=== PATIENT | female | born 1975 | race Caucasian/White ===

== ENCOUNTER 2016-11-01 20:04 | Emergency (ER) | payer OTHER ==
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
[2016-11-02] MEDS ORDERED: NAPROXEN 250 MG TABLET PO ONE (01:54)
[2016-11-02 03:38] VITALS: BP 131/87
== END 2016-11-02 02:20 | disposition home or self-care (01) ==
LOC: ER 20:04
DX: S40.011A Contusion of right shoulder, initial encounter (principal); M25.511 Pain in right shoulder; V89.2XXA Person injured in unspecified motor-vehicle accident, traffic, initial encounter; Z90.49 Acquired absence of other specified parts of digestive tract; Z90.710 Acquired absence of both cervix and uterus
CPT/HCPCS: 99283

== ENCOUNTER 2017-06-22 11:15 | Emergency (ER) | payer OTHER ==
--- NOTE | 2017-06-22 11:51 | ER Document Report ---
ED Flu Like - General Chief Complaint: Flu Symptoms Stated Complaint: BODYACHES Time Seen by Provider: 06/22/17 11:51 Mode of Arrival: Ambulatory Information source: Patient Notes: 42-year-old female presents to ED [facility] of cough congestion and body aches since . She states she had a fever 2 days ago but no fever today. She states she has taken [id number] cough and cold medication with no relief. TRAVEL OUTSIDE OF THE [place] IN LAST 30 DAYS: No - HPI Onset: Other - 2 weeks Timing/Duration: Intermittent Quality of pain: Achy Severity: Moderate Pain Level: 3 CO exposure: No Associated symptoms: Body/muscle aches, Nonproductive cough, Fever, Rhinnorhea, Sinus pain/drainage, Sore throat Similar symptoms previously: Yes Recently seen / treated by doctor: No - Related Data Allergies/Adverse Reactions: No Known Allergies Allergy (Verified 06/22/17 11:16) Past Medical History - General Information source: Patient - Social History Smoking Status: Never Smoker Cigarette use (# per day): No Chew tobacco use (# tins/day): No Smoking Education Provided: No Frequency of alcohol use: Occasional Drug Abuse: None Occupation: [employer] Lives with: Alone - With children Family History: DM. denies: Arthritis, CAD, COPD, CVA, Hyperlipidemia, Hypertension, Malignancy, Thyroid Disfunction Patient has suicidal ideation: No Patient has homicidal ideation: No - Past Medical History Cardiac Medical History: Reports: None Pulmonary Medical History: Reports: Hx Bronchitis, Hx Pneumonia - yrs ago EENT Medical History: Reports: None Neurological Medical History: Reports: None Endocrine Medical History: Reports: None Renal/ Medical History: Reports: None Malignancy Medical History: Reports: None GI Medical History: Reports: None Musculoskeltal Medical History: Reports None Skin Medical History: Reports None Psychiatric Medical History: Reports: None Traumatic Medical History: Reports: None Infectious Medical History: Reports: None Past Surgical History: Reports: Hx Appendectomy, Hx Cholecystectomy, Hx Hysterectomy, Hx Tubal Ligation - Immunizations Immunizations up to date: Yes Hx Diphtheria, Pertussis, Tetanus Vaccination: Yes Review of Systems - Review of Systems Constitutional: Chills, Fever, Recent illness EENT: Nose discharge, Sinus pressure, Sinus discharge Cardiovascular: No symptoms reported Respiratory: Cough Gastrointestinal: No symptoms reported Genitourinary: No symptoms reported Female Genitourinary: No symptoms reported Musculoskeletal: No symptoms reported Skin: No symptoms reported Hematologic/Lymphatic: No symptoms reported Neurological/Psychological: No symptoms reported Physical Exam - Vital signs Vitals: Temp Pulse BP Pulse Ox 98.3 F 80 134/83 H 97 06/22/17 11:19 06/22/17 11:19 06/22/17 11:19 06/22/17 11:19 Interpretation: Normal - General General appearance: Appears well, Alert - HEENT Head: Normocephalic, Atraumatic Eyes: Normal Pupils: PERRL Ears: Normal External canal: Normal Tympanic membrane: Normal Sinus: Frontal, Mastoid, Tenderness Nasal: Swelling, Clear rhinorrhea Mouth/Lips: Normal Pharynx: Post nasal drainage Neck: Normal - Respiratory Respiratory status: No respiratory distress Chest status: Nontender Breath sounds: Nonproductive cough Chest palpation: Normal - Cardiovascular Rhythm: Regular Heart sounds: Normal auscultation Murmur: No - Abdominal Inspection: Normal Distension: No distension Bowel sounds: Normal Tenderness: Nontender Organomegaly: No organomegaly - Back Back: Normal, Nontender - Extremities General upper extremity: Normal inspection, Nontender, Normal color, Normal ROM , Normal temperature General lower extremity: Normal inspection, Nontender, Normal color, Normal ROM , Normal temperature, Normal weight bearing. No: Shimon's sign - Neurological Neuro grossly intact: Yes Cognition: Normal Orientation: AAOx4 Bow Coma Scale Eye Opening: Spontaneous Bow Coma Scale Verbal: Oriented Clarice Coma Scale Motor: Obeys Commands Bow Coma Scale Total: 15 Speech: Normal Motor strength normal: LUE, RUE, LLE, RLE Sensory: Normal - Psychological Associated symptoms: Normal affect, Normal mood - Skin Skin Temperature: Warm Skin Moisture: Dry Skin Color: Normal Course - Vital Signs Vital signs: Temp Pulse Resp BP Pulse Ox 98.0 F 64 16 122/80 98 06/22/17 13:37 06/22/17 13:37 06/22/17 13:37 06/22/17 13:37 06/22/17 13:37 - Diagnostic Test Radiology reviewed: Image reviewed, Reports reviewed Discharge - Discharge Clinical Impression: URI (upper respiratory infection) Qualifiers: URI type: unspecified URI Qualified Code(s): J06.9 - Acute upper respiratory infection, unspecified Condition: Stable Disposition: HOME, SELF-CARE Instructions: Use of Kimy-Blu-Xksvfcz Ibuprofen ([facility]) Additional Instructions: UPPER RESPIRATORY ILLNESS: You have a viral infection of the respiratory passages -- a "cold." This common infection causes nasal congestion, drainage, and often sore throat and cough. It is highly contagious. The disease usually lasts about 10 to 14 days. There is no "cure" for the viral infection -- it must run its course. If there is a complication, such as bacterial infection in the nose, sinuses, middle ear, or bronchial tubes, antibiotics may be required. The antibiotics won't affect the virus. Drink plenty of fluids. A humidifier may help. An expectorant medication or decongestant may make you more comfortable. Use acetaminophen or ibuprofen for fever or aches. See the doctor if fever persists over two days, if there is any significant worsening of your symptoms, or if you simply fail to improve as expected. DECONGESTANT MEDICATION: A decongestant medicine has been suggested. Often this medicine is combined in the same tablet with an antihistamine or expectorant. This type of medicine is helpful in treating a bad cold or sinus condition, as well as in treatment of the nasal congestion of hay fever. It is not of much benefit for lung infections. Decongestant medicines are related to stimulants. They can cause an increase in blood pressure and heart rate. Persons with heart disease and high blood pressure should not take decongestants without discussing this with the physician. If you develop palpitations, chest pain, headache, or tremors, stop the medicine and consult your physician. COUGH-SUPPRESSANT & EXPECTORANT MEDICATION: You are to use a cough medication as needed for relief of symptoms. This medicine is a combination of an expectorant (to make the mucous thinner and more easily "coughed up") and a cough suppressant (to reduce the frequency of coughing). The cough-suppressant medicine is related to narcotics. You may experience mild nausea and sleepiness. Some patients who are very sensitive to narcotics may have stomach pain from this medicine. Taking the medicine with food reduces these side effects. Do not drive or work with machinery until you know how this medicine affects you. The expectorant should have no side effects. Iodine-containing expectorants (such as organidin) should not be taken by persons with active thyroid disease unless approved by your doctor. Call the doctor if you develop shortness of breath, hives, rash, itching, lightheadedness, or severe nausea and vomiting. Try Flonase, Claritin, Sudafed, Mucinex, and ibuprofen. When you get the combination medications most times there is not enough of each medicine over-the -counter individual medications often if more effective. Salt and soda solution 1 quart of water 1 tablespoon of salt 1 teaspoon of baking soda Mixed 3 ingredients together and boil for 1 minute Placed in a covered quart jar Use 1/2 ounce of cold solution to gargle 3 times a day USE OF ACETAMINOPHEN (Tylenol): Acetaminophen may be taken for pain relief or fever control. It's much safer than aspirin, offering a wider range of "safe" dosages. It is safe during . Some brand names are Tylenol, Panadol, Datril, Anacin 3, Tempra, and Liquiprin. Acetaminophen can be repeated every four hours. The following are maximum recommended dosages: >89 pounds or adults 650 mg to 900 mg Acetaminophen can be repeated every four hours. Maximum dose not to exceed 4000 mg a day. FOLLOW-UP CARE: If you have been referred to a physician for follow-up care, call the physician s office for an appointment as you were instructed or within the next two days. If you experience worsening or a significant change in your symptoms, notify the physician immediately or return to the Emergency Department at any time for re-evaluation. Forms: Elevated Blood Pressure, Return to Work Referrals: KETURAH HERNANDEZ MD [Primary Care Provider] - Follow up as needed
--- NOTE | 2017-06-22 12:40 | RADIOLOGY REPORT (SQ) ---
EXAM DESCRIPTION: CHEST PA/LAT COMPLETED DATE/TIME: 06/22/2017 12:32 pm REASON FOR STUDY: cough congestion COMPARISON: 05/31/2015 EXAM PARAMETERS: NUMBER OF VIEWS: two views TECHNIQUE: Digital Frontal and Lateral radiographic views of the chest acquired. RADIATION DOSE: NA LIMITATIONS: none FINDINGS: LUNGS AND PLEURA: No opacities, masses or pneumothorax. No pleural effusion. MEDIASTINUM AND HILAR STRUCTURES: No masses or contour abnormalities. HEART AND VASCULAR STRUCTURES: Heart normal size. No evidence for failure. BONES: No acute findings. HARDWARE: None in the chest. OTHER: No other significant finding. IMPRESSION: NO SIGNIFICANT RADIOGRAPHIC FINDING IN THE CHEST. TECHNICAL DOCUMENTATION: JOB ID: [id number] [employer]- All Rights Reserved
[2017-06-22 13:41] VITALS: BP 122/80
== END 2017-06-22 13:38 | disposition home or self-care (01) ==
LOC: ER 11:15
DX: J06.9 Acute upper respiratory infection, unspecified (principal); M79.1 Myalgia; R05 Cough; R09.81 Nasal congestion; R50.9 Fever, unspecified
CPT/HCPCS: 71020; 99283

== ENCOUNTER 2019-07-19 07:27 | Emergency (ER) | payer BC, OTHER ==
[2019-07-19] MEDS ORDERED: DEXAMETHASONE 4 MG TABLET PO ONE (07:49)
[2019-07-19] MEDS ORDERED: FAMOTIDINE 20 MG TABLET PO ONE (07:49)
[2019-07-19] MEDS ORDERED: DIPHENHYDRAMINE HCL 50 MG CAPSULE PO ONE (07:49)
--- NOTE | 2019-07-19 07:53 | ER Document Report ---
ED General - General Chief Complaint: Allergic Reaction Stated Complaint: BEE STING/POSSIBLE ALLERGIC REACTION Primary Care Provider: KETURAH HERNANDEZ MD [Primary Care Provider] - Follow up as needed Notes: Patient presents with "feeling out of sorts" with some mild skin itching after being stung by a bee in the endoscopy suite at [facility]. She denies throat tightness but has a scratchy throat for about a week in the setting of a URI. She has no vomiting diarrhea. 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 TRAVEL OUTSIDE OF THE [place] IN LAST 30 DAYS: No - Related Data Allergies/Adverse Reactions: bee sting Allergy (Uncoded 07/19/19 07:52) Past Medical History - Social History Smoking Status: Unknown if Ever Smoked Family History: DM. denies: Arthritis, CAD, COPD, CVA, Hyperlipidemia, Hypertension, Malignancy, Thyroid Disfunction Patient has suicidal ideation: No Patient has homicidal ideation: No - Past Medical History Cardiac Medical History: Denies: Hx Coronary Artery Disease, Hx Heart Attack, Hx Hypertension Pulmonary Medical History: Reports: Hx Bronchitis, Hx Pneumonia - yrs ago Denies: Hx Asthma, Hx COPD Neurological Medical History: Denies: Hx Cerebrovascular Accident, Hx Seizures Renal/ Medical History: Denies: Hx Peritoneal Dialysis Musculoskeletal Medical History: Denies Hx Arthritis Past Surgical History: Reports: Hx Appendectomy, Hx Cholecystectomy, Hx Hysterectomy, Hx Tubal Ligation - Immunizations Immunizations up to date: Yes Hx Diphtheria, Pertussis, Tetanus Vaccination: Yes Review of Systems - Review of Systems Notes: REVIEW OF SYSTEMS GEN: Denies fever, chills, weight loss ENT: Denies sore throat, nasal discharge, ear pain EYES: Denies blurry vision, eye pain, discharge CV: Denies chest pain, palpitations, edema RESP: Denies cough, shortness of breath, wheezing GI: Denies abdominal pain, nausea, vomiting, diarrhea MSK: Denies joint pain/swelling, edema, SKIN: Itching, bee sting to the left fourth webspace on the hand LYMPH: Denies swollen glands/lymph nodes NEURO: Denies headache, focal weakness or numbness, dizziness PSYCH: Denies depression, suicidal or homicidal ideation PHYSICAL EXAMINATION General: No acute distress, well-nourished Head: Atraumatic, normocephalic ENT: Mouth normal, oropharynx moist, no exudates or tonsillar enlargement Eyes: Conjunctiva normal, pupils equal, lids normal Neck: No JVD, supple, no guarding CVS: Normal rate, regular rhythm, no murmurs Resp: No resp distress, equal and normal breath sounds bilaterally GI: Nondistended, soft, no tenderness to palpation, no rebound or guarding Ext: No deformities, no edema, normal range of motion in upper and lower ext Back: No CVA or midline TTP Skin: Single pruritic papule left dorsal webspace upper hand without surrounding redness Lymphatic: No lymphadeopathy noted Neuro: Awake, alert. Face symmetric. GCS 15. Physical Exam - Vital signs Vitals: Temp Pulse Resp BP Pulse Ox 98.0 F 85 18 135/85 H 90 L 07/19/19 07:35 07/19/19 07:35 07/19/19 07:35 07/19/19 07:35 07/19/19 07:35 Course - Re-evaluation Re-evalutation: 07/19/19 07:52 Mild allergic reaction to bee sting in a patient with a remote history of anaphylaxis. No clinical signs of anaphylaxis here. Will treat with oral meds, Pepcid Benadryl and Decadron and reassess. 07/19/19 12:38 Patient does not develop any further allergic symptoms and actually improved in the ED. Stable for discharge. Self tapering Decadron given and will do antihistamines at home. I have discussed with the patient there likely diagnosis, aftercare plan, follow-up plans and my usual and customary return precautions. They verbalized understanding of this. - Vital Signs Vital signs: Temp Pulse Resp BP Pulse Ox 97.6 F 72 16 136/95 H 97 07/19/19 09:04 07/19/19 09:04 07/19/19 09:04 07/19/19 09:04 07/19/19 09:04 Discharge - Discharge Clinical Impression: Bee sting allergy Condition: Good Disposition: HOME, SELF-CARE Instructions: Acute Allergic Reaction ([facility]) Additional Instructions: The steroid medicine you got in the ER last to 3 days in a single dose. Please take Benadryl every 6 hours, 2 tablets or 50 mg, as needed for itching. Please return to the ER for any worsening symptoms at all. Referrals: KETURAH HERNANDEZ MD [Primary Care Provider] - Follow up as needed
[2019-07-19 09:06] VITALS: BP 136/95
== END 2019-07-19 09:06 | disposition home or self-care (01) ==
LOC: ER 07:27
DX: T63.441A Toxic effect of venom of bees, accidental (unintentional), initial encounter (principal); Y92.238 Other place in hospital as the place of occurrence of the external cause; Y99.0 Civilian activity done for income or pay; Z87.892 Personal history of anaphylaxis; J06.9 Acute upper respiratory infection, unspecified
CPT/HCPCS: 99282; J8540

== ENCOUNTER 2019-12-12 08:30 | Emergency (ER) | payer BC ==
[2019-12-12 08:35] VITALS: BP 139/84
--- NOTE | 2019-12-12 08:48 | ER Document Report ---
ED General - General Chief Complaint: Toothache Stated Complaint: TOOTH PAIN, FACIAL SWELLING Time Seen by Provider: 12/12/19 08:41 Primary Care Provider: KETURAH HERNANDEZ MD [Primary Care Provider] - Follow up as needed Notes: 44 reviewed presents with a week and a half of right-sided tooth pain, lower, which is been painful and responding to Orajel clove oil and Motrin but got worse this morning with swelling of her face. She called her dentist who told her to come to the emergency room. She denies trismus, is eating and drinking normally and has no fever. TRAVEL OUTSIDE OF THE [place] IN LAST 30 DAYS: No - Related Data Allergies/Adverse Reactions: bee sting Allergy (Uncoded 07/19/19 07:52) Past Medical History - General Information source: Patient - Social History Smoking Status: Never Smoker Family History: DM. denies: Arthritis, CAD, COPD, CVA, Hyperlipidemia, Hypertension, Malignancy, Thyroid Disfunction - Past Medical History Cardiac Medical History: Denies: Hx Coronary Artery Disease, Hx Heart Attack, Hx Hypertension Pulmonary Medical History: Reports: Hx Bronchitis, Hx Pneumonia - yrs ago Denies: Hx Asthma, Hx COPD Neurological Medical History: Denies: Hx Cerebrovascular Accident, Hx Seizures Renal/ Medical History: Denies: Hx Peritoneal Dialysis Musculoskeletal Medical History: Denies Hx Arthritis Past Surgical History: Reports: Hx Appendectomy, Hx Cholecystectomy, Hx Hysterectomy, Hx Tubal Ligation - Immunizations Immunizations up to date: Yes Hx Diphtheria, Pertussis, Tetanus Vaccination: Yes Review of Systems - Review of Systems Notes: REVIEW OF SYSTEMS GEN: Denies fever, chills, weight loss ENT: Tooth pain EYES: Denies blurry vision, eye pain, discharge CV: Denies chest pain, palpitations, edema RESP: Denies cough, shortness of breath, wheezing GI: Denies abdominal pain, nausea, vomiting, diarrhea MSK: Denies joint pain/swelling, edema, SKIN: Denies rash, skin lesions LYMPH: Denies swollen glands/lymph nodes NEURO: Denies headache, focal weakness or numbness, dizziness PSYCH: Denies depression, suicidal or homicidal ideation PHYSICAL EXAMINATION General: No acute distress, well-nourished Head: Atraumatic, normocephalic ENT: Right third molar, mandibular with decay and tenderness without surrounding erythema or abscess of the gingiva l Eyes: Conjunctiva normal, pupils equal, lids normal Neck: No JVD, supple, no guarding Resp: No resp distress, equal chest rise GI: Nondistended, no guarding Back: No midline or CVA tenderness Ext: No deformities, no edema Skin: Well-perfused, no rash Neuro: Awake, alert. Face symmetric. Physical Exam - Vital signs Vitals: Temp Pulse Resp BP Pulse Ox 97.9 F 84 20 139/84 H 94 12/12/19 08:34 12/12/19 08:34 12/12/19 08:34 12/12/19 08:34 12/12/19 08:34 Course - Re-evaluation Re-evalutation: 12/12/19 08:47 Dental infection uncomplicated Discharged with medication follow-up dental. I have discussed with the patient there likely diagnosis, aftercare plan, follow-up plans and my usual and customary return precautions. They verbalized understanding of this. - Vital Signs Vital signs: Temp Pulse Resp BP Pulse Ox 97.9 F 84 20 139/84 H 94 12/12/19 08:34 12/12/19 08:34 12/12/19 08:34 12/12/19 08:34 12/12/19 08:34 Discharge - Discharge Clinical Impression: Dental infection Condition: Good Disposition: HOME, SELF-CARE Instructions: Oral Narcotic Medication ([facility]), Toothache ([facility]) Prescriptions: Penicillin V Potassium [Penicillin Vk 500 mg Tablet] 500 mg PO BID #20 tablet Oxycodone HCl/Acetaminophen [Percocet 5-325 mg Tablet] 1 - 2 tab PO Q4H PRN #7 tablet PRN Reason: Referrals: KETURAH HERNANDEZ MD [Primary Care Provider] - Follow up as needed
== END 2019-12-12 09:05 | disposition home or self-care (01) ==
LOC: ER 08:30
DX: K04.7 Periapical abscess without sinus (principal); K08.89 Other specified disorders of teeth and supporting structures; R22.0 Localized swelling, mass and lump, head
CPT/HCPCS: 99282

== ENCOUNTER 2020-03-07 17:58 | Emergency (ER) | payer BC ==
[2020-03-07 18:06] VITALS: BP 122/90
[2020-03-07] MEDS ORDERED: IBUPROFEN 800 MG TABLET PO ONE (18:15)
--- NOTE | 2020-03-07 18:19 | ER Document Report ---
HPI - HPI Time Seen by Provider: 03/07/20 18:12 Pain Level: 3 Notes: 45 yr old female presents today with complaints of left wrist pain s/p FOOSH injury x 1 hour ago. pt states that she was hanging curtains and tripped off a ladder onto the floor, landing on her bottom but tried to break the fall with her left wrist. Denies hitting her head or change in level consciousness. Has not tried any [id number] medications for pain control, states pain is 3 out of 5. Has tried icing and elevation with minimal relief. Denies any prior injury to her wrist. Denies fevers, chills, chest pain,palpitations, shortness of breath, dyspnea, nausea, vomiting, diarrhea, abdominal pain, hematuria,blurred vision, double vision, loss of vision, speech changes, LH, dizziness, syncope, headaches, wheezing, ST, URI, neck pain, weakness, bowel or bladder dysfunction, saddle anesthesia, numbness or tingling in bilateral upper or lower extremities equally, muscle paralysis, weakness in bilateral upper or lower extremities equally or rash. Denies IV drug use. MEDICATIONS: I agree with the patient medications as charted by the RN. ALLERGIES: I agree with the allergies as charted by the RN. PAST MEDICAL HISTORY/PAST SURGICAL HISTORY: Reviewed and agree as charted by RN. SOCIAL HISTORY: Reviewed and agree as charted by RN. FAMILY HISTORY: No significant familial comorbid conditions directly related to patient complaint EXAM: Reviewed vital signs as charted by RN. REVIEW OF SYSTEMS:reviewed vital signs by RN CONSTITUTIONAL : Denies fever, chills, or sweats. Denies recent illness. EENT: Denies eye, ear, throat, or mouth pain or symptoms. Denies nasal or sinus congestion or discharge. Denies throat, tongue, or mouth swelling or difficulty swallowing. CARDIOVASCULAR: Denies chest pain. Denies palpitations or racing or irregular heart beat. Denies ankle edema. RESPIRATORY: Denies cough, cold, or chest congestion. Denies shortness of breath, difficulty breathing, or wheezing. GASTROINTESTINAL: Denies abdominal pain or distention. Denies nausea, vomiting, or diarrhea. Denies blood in vomitus, stools, or per rectum. Denies black, tarry stools. Denies constipation. GENITOURINARY: Denies difficulty urinating, painful urination, burning, frequency, blood in urine, or discharge. FEMALE GENITOURINARY: Denies vaginal bleeding, heavy or abnormal periods, irregular periods. Denies vaginal discharge or odor. MUSCULOSKELETAL: Reports left wrist pain. denies back or neck pain or stiffness. Denies joint pain or swelling. SKIN: Denies rash, lesions or sores. HEMATOLOGIC : Denies easy bruising or bleeding. LYMPHATIC: Denies swollen, enlarged glands. NEUROLOGICAL: Denies confusion or altered mental status. Denies passing out or loss of consciousness. Denies dizziness or lightheadedness. Denies headache. Denies weakness or paralysis or loss of use of either side. Denies problems with gait or speech. Denies sensory loss, numbness, or tingling. Denies seizures. PSYCHIATRIC: Denies anxiety or stress. Denies depression, suicidal ideation, or homicidal ideation. ALL OTHER SYSTEMS REVIEWED AND NEGATIVE. PHYSICAL EXAMINATION: GENERAL: Well-appearing, well-nourished and in no acute distress. HEAD: Atraumatic, normocephalic. EYES: Pupils equal round and reactive to light, extraocular movements intact, conjunctiva are normal. ENT: Nares patent, oropharynx clear without exudates. Moist mucous membranes. NECK: Normal range of motion, supple without lymphadenopathy LUNGS: Breath sounds clear to auscultation bilaterally and equal. No wheezes rales or rhonchi. HEART: Regular rate and rhythm without murmurs ABDOMEN: Soft, nontender, nondistended abdomen. No guarding, no rebound. No masses appreciated. Female : deferred Musculoskeletal: Normal range of motion, no pitting or edema. No cyanosis. Noted right wrist pain with flexion, extension, inversion, eversion of wrist. digits in right and left with full aprom.. Game Developer + 2 BUE equally. Snuffbox tenderness positive on right. radial pulses + 2 BUE equally. Negative kanavels sign. No open wounds or drainage from wrist. No vascular compromise.No body crepitus or focal area of TTP. Limited ROM with flexion, extension, ulnar/radial deviation . Motor and sensory function of ulnar, radial, medial nerves intact bilaterally and equally. NEUROLOGICAL: Cranial nerves grossly intact. Normal speech, normal gait. Normal sensory, motor exams PSYCH: Normal mood, normal affect. SKIN: Warm, Dry, normal turgor, no rashes or lesions noted. Dictation was performed using Dragon voice recognition software - REPRODUCTIVE Reproductive: DENIES: : Past Medical History - General Information source: Patient - Social History Smoking Status: Never Smoker Frequency of alcohol use: Occasional Drug Abuse: None Family History: DM. denies: Arthritis, CAD, COPD, CVA, Hyperlipidemia, Hypertension, Malignancy, Thyroid Disfunction - Past Medical History Cardiac Medical History: Denies: Hx Coronary Artery Disease, Hx Heart Attack, Hx Hypertension Pulmonary Medical History: Reports: Hx Bronchitis, Hx Pneumonia - yrs ago Denies: Hx Asthma, Hx COPD Neurological Medical History: Denies: Hx Cerebrovascular Accident, Hx Seizures Renal/ Medical History: Denies: Hx Peritoneal Dialysis Musculoskeletal Medical History: Denies Hx Arthritis Past Surgical History: Reports: Hx Appendectomy, Hx Cholecystectomy, Hx Hysterectomy, Hx Tubal Ligation - Immunizations Immunizations up to date: Yes Hx Diphtheria, Pertussis, Tetanus Vaccination: Yes Vertical Provider Document - CONSTITUTIONAL Agree With Documented VS: Yes Exam Limitations: No Limitations General Appearance: WD/WN - INFECTION CONTROL TRAVEL OUTSIDE OF THE [place] IN LAST 30 DAYS: No Course - Re-evaluation Re-evalutation: 03/07/20 19:08 Afebrile vital stable no distress. Nurses notes reviewed. X-ray negative for any acute fracture dislocation or foreign body. Patient placed in a cock-up Velcro splint. Advised to follow-up with excel specialist and primary care provider in the next 24 to 48 hours. Advised alternate between Tylenol and ibuprofen for pain control. Apply ice 20 minutes on 20 minutes off and then switch over to heat 20 minutes on 20 minutes off tomorrow for several days. After performing a Medical Screening Examination, I estimate there is LOW risk for OPEN FRACTURE, COMPARTMENT SYNDROME, DEEP VENOUS THROMBOSIS, ACUTE TENDON RUPTURE, or NEUROVASCULAR INJURY thus I consider the discharge disposition reasonable. I have reevaluated this patient multiple times and no significant life threatening changes are noted. The patient and I have discussed the diagnosis and risks, and we agree with discharging home to closely follow-up with their primary doctor or the referral orthopedist with the understanding that symptoms and presentations can change. We also discussed returning to the Emergency Department immediately if new or worsening symptoms occur. We have discussed the symptoms which are most concerning (e.g., changing or worsening pain, numbness, weakness) that necessitate immediate return - Vital Signs Vital signs: Temp Pulse Resp BP Pulse Ox 98.3 F 83 18 122/90 H 96 03/07/20 18:03 03/07/20 18:03 03/07/20 18:03 03/07/20 18:03 03/07/20 18:03 Discharge - Discharge Clinical Impression: Left wrist pain Condition: Stable Disposition: HOME, SELF-CARE Instructions: Wrist Sprain ([facility]), Ice & Elevation ([facility]) Additional Instructions: Your x-ray was negative for any acute fractures. You were given a wrist splint. Follow-up with excel specialist within 24 to 48 hours. Alternating Tylenol and ibuprofen for pain control. Return immediately for any new or worsening symptoms. Follow up with primary care provider, call tomorrow to make followup appointment. Who Prescriptions: Meloxicam [Mobic] 7.5 mg PO DAILY #7 tablet Forms: Return to Work Referrals: KETURAH HERNANDEZ MD [Primary Care Provider] - Follow up as needed CHAVO HUSTON MD [ACTIVE STAFF] - Follow up as needed
--- NOTE | 2020-03-07 18:44 | RADIOLOGY REPORT (SQ) ---
EXAM DESCRIPTION: WRIST LEFT 3 VIEWS IMAGES COMPLETED DATE/TIME: 03/07/2020 6:33 pm REASON FOR STUDY: FOOSH injury COMPARISON: None. NUMBER OF VIEWS: Three views. TECHNIQUE: AP, lateral, and oblique radiographic images acquired of the left wrist. LIMITATIONS: None. FINDINGS: MINERALIZATION: Normal. BONES: No acute fracture or dislocation. Normal alignment. Negative ulnar variance. SOFT TISSUES: No soft tissue swelling. No foreign body. OTHER: No other significant finding. IMPRESSION: 1. No acute osseous findings. A follow-up examination is suggested if symptoms are per sistent. TECHNICAL DOCUMENTATION: JOB ID: [id number] 2010 [email or web address]- All Rights Reserved Reading location - IP/workstation name: [email or web address]
== END 2020-03-07 19:13 | disposition home or self-care (01) ==
LOC: ER 17:58
DX: M25.532 Pain in left wrist (principal); W11.XXXA Fall on and from ladder, initial encounter
CPT/HCPCS: 99283

== ENCOUNTER → 2020-07-18 | Outpatient (CLI) | payer BC ==
[~2020-07-18] MED LIST: COVID-19 VACCINE (PFIZER)/PF 30 MCG/0.3 ML VIAL IM ONE; EPINEPHRINE INJ/PF 1 MG/1 ML AMPULE IM PRN
== END ==
LOC: EMPHEALTH 12:51
PROVIDERS: ATTEND Internal Medicine
DX: Z23 Encounter for immunization (principal)
CPT/HCPCS: 91300

== ENCOUNTER → 2020-08-08 | Outpatient (CLI) | payer BC | LOC: EMPHEALTH 13:02 | PROVIDERS: ATTEND Internal Medicine | DX: Z23 Encounter for immunization (principal) | CPT/HCPCS: 91300 ==